=== PATIENT | female | born 1990 | race Caucasian/White ===

== ENCOUNTER 2019-10-29 16:19 | Emergency (ER) | payer OTHER ==
[~2019-10-29] VITALS: Ht 157.5 cm; Wt 65.9 kg
[2019-10-29 16:21] VITALS: BP 118/77
[2019-10-29] MEDS ORDERED: PRAMOXINE HCL/BENZYL ALCOHOL 1% 35 GM GEL TP ONE (17:30)
== END 2019-10-29 17:48 | disposition home or self-care (01) ==
LOC: EMS 16:19
DX: S50.862A Insect bite (nonvenomous) of left forearm, initial encounter (principal); S20.461A Insect bite (nonvenomous) of right back wall of thorax, initial encounter; S00.262A Insect bite (nonvenomous) of left eyelid and periocular area, initial encounter; W57.XXXA Bitten or stung by nonvenomous insect and other nonvenomous arthropods, initial encounter; Y93.89 Activity, other specified; Y92.89 Other specified places as the place of occurrence of the external cause; Y99.8 Other external cause status
CPT/HCPCS: Z7502

== ENCOUNTER 2020-12-21 09:53 | Emergency (ER) | payer OTHER ==
[~2020-12-21] VITALS: Ht 157.5 cm; Wt 72.7 kg
[2020-12-21] MEDS ORDERED: PERTUSS(ACELL),DIPH,TET VAC/PF 0.5 ML SYRINGE IM. ONE (11:15)
[2020-12-21] MEDS ORDERED: IBUPROFEN 400 MG TABLET PO ONE (13:00)
[2020-12-21] MEDS ORDERED: ACETAMINOPHEN 325 MG TABLET PO ONE (13:00)
[2020-12-21 13:35] VITALS: BP 120/81
== END 2020-12-21 13:38 | disposition home or self-care (01) ==
LOC: EMS 09:53
DX: S00.212A Abrasion of left eyelid and periocular area, initial encounter (principal); W50.0XXA Accidental hit or strike by another person, initial encounter; Y93.89 Activity, other specified; Y92.89 Other specified places as the place of occurrence of the external cause; Y99.8 Other external cause status
CPT/HCPCS: 70450; 90471; 90715; 99284

== ENCOUNTER 2021-08-17 11:48 | Emergency (ER) | payer OTHER ==
[~2021-08-17] VITALS: Ht 157.5 cm; Wt 72.7 kg
[2021-08-17 12:39] VITALS: BP 132/85
[2021-08-17 13:12] LABS: COVID AG,FIA SOURCE NASAL SWAB
[2021-08-17] MEDS ORDERED: OXYMETAZOLINE HCL 0.05% 15 ML NASAL SPRAY NASAL ONE (13:15)
[2021-08-17 14:24] LABS: INFLUENZA TYPE A NEGATIVE FOR TYPE A (NEGATIVE); INFLUENZA TYPE B NEGATIVE FOR TYPE B (NEGATIVE)
== END 2021-08-17 14:53 | disposition home or self-care (01) ==
LOC: EMS 11:48
DX: J40 Bronchitis, not specified as acute or chronic (principal); Z20.822 Contact with and (suspected) exposure to COVID-19
CPT/HCPCS: 71045; 87804; 99284